=== PATIENT | male | born 1940 | race Caucasian/White ===

== ENCOUNTER 2021-10-03 11:30 | Emergency (ER) | payer MEDICARE, BC ==
[~2021-10-03] VITALS: Ht 167.6 cm; Wt 65.3 kg
[2021-10-03] MEDS ORDERED: MEMA10TA PO (12:02)
[2021-10-03] MEDS ORDERED: ATOR40TA PO (12:02)
[2021-10-03] MEDS ORDERED: DONE5TAB34 PO (12:02)
--- NOTE | 2021-10-03 12:15 | NUR ---
PT SEEN AND EVALUATED BY DR JEONG.
--- NOTE | 2021-10-03 12:21 | NUR ---
Dr Jarrell notified of Pt not wanting to have an EKG.
[2021-10-03 13:57] VITALS: BP 137/75
--- NOTE | 2021-10-03 13:57 | NUR ---
Patient discharged to home in stable condition. Written and verbal after care instructions given. Patient verbalizes understanding of instructions. Stressed follow up or return to ER for worsening s/s.
== END 2021-10-03 14:05 | disposition home or self-care (01) ==
LOC: ER 11:38
DX: S20.212A Contusion of left front wall of thorax, initial encounter (principal); S60.311A Abrasion of right thumb, initial encounter; S80.212A Abrasion, left knee, initial encounter; Y92.89 Other specified places as the place of occurrence of the external cause; W01.0XXA Fall on same level from slipping, tripping and stumbling without subsequent striking against object, initial encounter; F03.90 Unspecified dementia, unspecified severity, without behavioral disturbance, psychotic disturbance, mood disturbance, and anxiety
CPT/HCPCS: 71045; 93005; A4663